=== PATIENT | male | born 1965 | race Hispanic/Latino ===

== ENCOUNTER 2017-09-23 09:33 | Emergency (ER) | payer MEDICAID ==
[~2017-09-23] VITALS: Ht 177.8 cm; Wt 104.3 kg
[2017-09-23 09:45] VITALS: BP 158/100
[2017-09-23 10:53] VITALS: BP 158/100
--- NOTE | 2017-09-26 13:39 | Emergency Room Report ---
History of Present Illness General Chief Complaint: Alcohol Intoxication Source: Patient Present Illness HPI Patient presented with chief complaint of alcohol ingestion Patient initially was brought in and does report that he drank more than usual Denies any vomiting patient was somewhat slurring his speech and unstable on his gait Denies any trauma Denies any chest pain or shortness of breath denies any back or flank pain after obtaining history and the examination patient did fall asleep Allergies: Coded Allergies: No Known Allergies (Verified Allergy, Unknown, 03/05/10) Patient History Past Medical History: see triage record Pertinent Family History: none Reviewed Nursing Documentation: PMH: Agreed, PSxH: Agreed Nursing Documentation-PMH Hx Cardiac Problems: Yes Hx Cancer: Yes - prostate cancer Review of Systems All Other Systems: negative except mentioned in HPI Physical Exam Vital Signs Date Time Temp Pulse Resp B/P (MAP) Pulse Ox O2 Delivery O2 Flow Rate FiO2 09/23/17 09:36 100 16 157/100 99 Room Air 09/23/17 09:45 97.4 Sp02 EP Interpretation: reviewed, normal General Appearance: well appearing, no apparent distress Head: normocephalic, atraumatic Eyes: bilateral eye PERRL, bilateral eye EOMI ENT: hearing grossly normal, normal pharynx, TMs + canals normal, uvula midline Neck: full range of motion, supple, no meningismus, no bony tend Respiratory: lungs clear, normal breath sounds, no rhonchi, no respiratory distress, no retraction, no accessory muscle use Cardiovascular #1: normal peripheral pulses, regular rate, rhythm, no edema, no gallop, no JVD, no murmur Gastrointestinal: normal bowel sounds, non tender, soft, no mass, no organomegaly, non-distended, no guarding, no hernia, no pulsatile mass, no rebound Genitourinary: no CVA tenderness Musculoskeletal: normal inspection Neurologic: oriented x3, responsive, [employer] director III-XII nml as tested, motor strength/ tone normal, sensory intact Psychiatric: mood/affect normal Skin: normal color, no rash, warm/dry, palpation normal Lymphatic: normal inspection, no adenopathy Medical Decision Making Diagnostic Impression: Primary Impression: alcohol abuse ER Course Patient is verbal awake Speaking appropriately admits to drinking alcohol has no other complaints Given the lack of any focal neurological findings further imaging was not obtained Patient rested comfortably At a later time is ambulatory gait is much improved and patient is allowed to be discharged home Last Vital Signs Date Time Temp Pulse Resp B/P (MAP) Pulse Ox O2 Delivery O2 Flow Rate FiO2 09/23/17 10:53 97.4 87 16 158/100 99 Room Air Status: improved Disposition: HOME, SELF-CARE Condition: Improved Referrals: [facility]ERR[facility] (PCP) Patient Instructions: Alcohol Abuse and Nutrition Additional Instructions: Patient is provided with the discharge instructions notified to follow up with primary doctor in the next 2-3 days otherwise return to the er with any worsening symptoms. Please note that this report is being documented using [employer] technology. This can lead to erroneous entry secondary to incorrect interpretation by the dictating instrument. REGINALD GOODEN D.O. Sep 26, 2017 13:39
== END 2017-09-23 10:53 | disposition home or self-care (01) ==
LOC: EDBD 09:33 → EDUNIT# 10:00 → EMR 10:00
DX: F10.10 Alcohol abuse, uncomplicated (principal); Z85.46 Personal history of malignant neoplasm of prostate
CPT/HCPCS: 99283